=== PATIENT | male | born 1950 | race Caucasian/White ===

== ENCOUNTER 2017-10-17 11:48 | Emergency (ER) | payer OTHER ==
[~2017-10-17 11:48] MED LIST: ABILIF5PT PO; ACET650O4 PO; ARIP1SOL2 PO; ARIP20TA11 PO; BLOOD PRESSURE; BLOOD PRESSURE MED PO; BUPR-149 PO; CEPH-13 PO; CIT20 PO; DOC100 PO; HYDRO25 PO; LIT300 PO; LIT300CAP PO; LOR5/325 PO; LORA-633 PO; MULT-1379 PO; MVM PO; MYLL PO; NITR-105 PO; OLAN10TA19 PO; OLAN20TA17 PO; OMEG-11 PO; PHEN200T32 PO; SLEEP MED; SULF-198 PO; [UNRECOGNIZED DRUG - OTHER]
--- NOTE | 2017-10-17 11:57 | ER Report ---
History and Physical Time Seen By MD: 11:57 Hx. of Stated Complaint: pt presents with 1 week hx of elevated bp, was encouraged by [facility] rn to be evaluated HPI/ROS CHIEF COMPLAINT: Dizziness and hypertension HISTORY OF PRESENT ILLNESS: This is a 67-year-old male presents to the emergency department for dizziness and hypertension. Patient states that the last week his blood pressures increased, then today around 10:00 he developed some dizziness and a global headache. Patient denies any numbness or tingling nausea or vomiting. No chest pain or shortness of breath. No fevers or rashes. No visual changes. Positional changes do not seem to affect the patient's dizziness. States when he looks up that seems to increase the dizziness. His blood pressure at this time is 120/109. [facility] was concerned about his diastolic blood pressure subsequently sent him to the ER for further evaluation. REVIEW OF SYSTEMS: Constitutional: No fever, no chills. Eyes: No discharge. ENT: No sore throat. Cardiovascular: No chest pain, no palpitations. Respiratory: No cough, no shortness of breath. Gastrointestinal: No abdominal pain, no vomiting. Genitourinary: No hematuria. Musculoskeletal: No back pain. Skin: No rashes. Neurological: As above. Allergies: Coded Allergies: valproic acid (Verified Allergy, Mild, 10/17/17) Home Meds Reported Medications Metformin HCl (Metformin HCl ER) 500 Mg [id number] 10/17/17 Lisinopril (LISINOPRIL) 20 Mg Tablet, 20 MG PO QDAY, TAB 10/17/17 Propranolol Hcl (PROPRANOLOL HCL) 10 Mg Tablet, 10 MG PO BID 10/17/17 Bupropion Hcl (BUPROPION HCL) 100 Mg Tablet, 100 MG PO QAM 09/01/12 Aripiprazole (ABILIFY) 20 Mg Tablet, 10 MG PO QAM 09/01/12 Hydroxyzine Pamoate (Vistaril) 25 Mg Cap, 25 MG PO Q6H Y, 0 Refills 09/28/10 Olanzapine (Zyprexa) 10 Mg Tablet, 40 MG PO QHS, 0 Refills 09/28/10 Discontinued Scripts Phenazopyridine Hcl (PHENAZOPYRIDINE HCL) 200 Mg Tablet, 200 MG PO TID, #15 TAB TAKE 1 TABLET BY MOUTH THREE TIMES A DAY AFTER MEALS Prov:ABBY QUEVEDO NP 07/16/14 Nitrofurantoin Monohyd/M-Cryst (MACROBID 100 MG CAPSULE) 100 Mg Capsule, 100 MG PO BID, #14 CAPSULE Prov:ABBY QUEVEDO CLOTHER IN 07/16/14 Past Medical/Surgical History The patient has a past medical and surgical history of seizures, hypertension, hepatitis C, urinary tract infections, right arm fracture, bipolar disorder, schizophrenia, cholecystectomy, right knee surgery. Hx Smoking: Yes Smoking Status: Former Smoker Hx Substance Use Disorder: No Hx Alcohol Use: No Constitutional Vital Sign - Last 24 Hours 10/17/17 10/17/17 10/17/17 10/17/17 11:52 11:53 12:00 12:03 Temp 97.5 Pulse 68 61 Resp 20 12 B/P (MAP) 132/103 (113) 132/103 128/109 (115) Pulse Ox 95 96 O2 Delivery Room Air 10/17/17 10/17/17 10/17/17 10/17/17 12:18 12:30 12:50 13:00 Pulse 58 53 Resp 10 7 B/P (MAP) 126/87 (100) 122/95 (104) Pulse Ox 94 10/17/17 10/17/17 10/17/17 13:05 13:20 13:30 Pulse 58 62 Resp 10 20 B/P (MAP) 119/84 (96) Pulse Ox 92 92 Physical Exam CH General Appearance: The patient is alert, has no immediate need for airway protection and no signs of toxicity. Eyes: Pupils equal and round no pallor or injection. EOMs intact. No nystagmus in lateral or vertical gaze. ENT, Mouth: Mucous membranes are moist. Respiratory: There are no retractions, lungs are clear to auscultation. Cardiovascular: Regular rate and rhythm, no murmurs, clicks or rubs. Gastrointestinal: Abdomen is soft and non tender, no masses, bowel sounds normal. Neurological: Alert and oriented 4. Moving all extremities. Following all commands. No focal neuro deficits. Cranial nerves II through XII intact. Skin: Warm and dry, no rashes. Musculoskeletal: Neck is supple non tender. Extremities are nontender, nonswollen and have full range of motion. DIFFERENTIAL DIAGNOSIS: After history and physical exam differential diagnosis was considered for headache including but not limited to subarachnoid hemorrhage , migraine headache, tension headache and infectious causes such as meningitis, pharyngitis and sinusitis. NIH Stroke Scale: 0 Level of consciousness:0 Alert Answers both questions correctly Performs both tasks correctly Best Gaze:0 Normal Visual:0 No visual loss Facial Palsy:0 Normal, symmetrical movements Motor Left Arm:0 No drift for 10 seconds Motor Right Arm:0 No drift for 10 seconds Motor Left Le No drift for 5 seconds Motor Right Le No drift for 5 seconds Limb Ataxia:0 Absent Sensory: 0 Normal, no sensory loss Best Language: 0 Normal, no aphasia Dysarthria:0 Normal Extinction and Inattention:0 No abnormality Medical Decision Making Data Points Result Diagram: 10/17/17 1202 10/17/17 1202 Laboratory Hematology Test 10/17/17 12:02 Red Blood Count 5.25 M/uL (4.00-5.60) Mean Corpuscular Volume 88.9 fL (80.0-96.0) Mean Corpuscular Hemoglobin 31.1 pg (26.0-33.0) Mean Corpuscular Hemoglobin Concent 35.0 g/dL (32.0-36.0) Red Cell Distribution Width 13.4 % (11.5-14.5) Mean Platelet Volume 9.3 fL (7.2-11.1) Neutrophils (%) (Auto) 53.8 % (39.4-72.5) Lymphocytes (%) (Auto) 35.5 % (17.6-49.6) Monocytes (%) (Auto) 8.7 % (4.1-12.4) Eosinophils (%) (Auto) 1.1 % (0.4-6.7) Basophils (%) (Auto) 0.9 % (0.3-1.4) Nucleated RBC Relative Count (auto) 0.0 /100WBC Neutrophils # (Auto) 2.8 K/uL (2.0-7.4) Lymphocytes # (Auto) 1.8 K/uL (1.3-3.6) Monocytes # (Auto) 0.5 K/uL (0.3-1.0) Eosinophils # (Auto) 0.1 K/uL (0.0-0.5) Basophils # (Auto) 0.0 K/uL (0.0-0.1) Nucleated RBC Absolute Count (auto) 0.00 K/uL Sodium Level 141 mmol/L (137-145) Potassium Level 4.2 mmol/L (3.5-5.0) Chloride Level 104 mmol/L (98-107) Carbon Dioxide Level 25 mmol/L (22-30) Blood Urea Nitrogen 20 mg/dl (9-21) Creatinine 1.10 mg/dl (0.66-1.25) Glomerular Filtration Rate Calc > 60.0 Random Glucose 132 mg/dl (75-110) Calcium Level 9.6 mg/dl (8.4-10.2) Total Bilirubin 0.6 mg/dl (0.2-1.3) Aspartate Amino Transf (AST/SGOT) 18 U/L (0-35) Alanine Aminotransferase (ALT/SGPT) 22 U/L (0-56) Alkaline Phosphatase 64 U/L (0-126) Troponin I < 0.012 ng/ml Total Protein 4.6 g/dl (6.3-8.2) Albumin 4.5 g/dl (3.5-5.0) Chemistry Test 10/17/17 12:02 White Blood Count 5.2 k/uL (4.5-11.0) Red Blood Count 5.25 M/uL (4.00-5.60) Hemoglobin 16.4 g/dL (14.0-18.0) Hematocrit 46.7 % (42.0-52.0) Mean Corpuscular Volume 88.9 fL (80.0-96.0) Mean Corpuscular Hemoglobin 31.1 pg (26.0-33.0) Mean Corpuscular Hemoglobin Concent 35.0 g/dL (32.0-36.0) Red Cell Distribution Width 13.4 % (11.5-14.5) Platelet Count 124 K/uL (150-450) Mean Platelet Volume 9.3 fL (7.2-11.1) Neutrophils (%) (Auto) 53.8 % (39.4-72.5) Lymphocytes (%) (Auto) 35.5 % (17.6-49.6) Monocytes (%) (Auto) 8.7 % (4.1-12.4) Eosinophils (%) (Auto) 1.1 % (0.4-6.7) Basophils (%) (Auto) 0.9 % (0.3-1.4) Nucleated RBC Relative Count (auto) 0.0 /100WBC Neutrophils # (Auto) 2.8 K/uL (2.0-7.4) Lymphocytes # (Auto) 1.8 K/uL (1.3-3.6) Monocytes # (Auto) 0.5 K/uL (0.3-1.0) Eosinophils # (Auto) 0.1 K/uL (0.0-0.5) Basophils # (Auto) 0.0 K/uL (0.0-0.1) Nucleated RBC Absolute Count (auto) 0.00 K/uL Glomerular Filtration Rate Calc > 60.0 Calcium Level 9.6 mg/dl (8.4-10.2) Total Bilirubin 0.6 mg/dl (0.2-1.3) Aspartate Amino Transf (AST/SGOT) 18 U/L (0-35) Alanine Aminotransferase (ALT/SGPT) 22 U/L (0-56) Alkaline Phosphatase 64 U/L (0-126) Troponin I < 0.012 ng/ml Total Protein 4.6 g/dl (6.3-8.2) Albumin 4.5 g/dl (3.5-5.0) EKG/Imaging EKG Interpretation 12 lead EKG: EKG at 1158. Rhythm: normal sinus rhythm, ventricular rate 63 bpm. [place]: normal QRS: normal ST segments: No ST depression or elevation identified. Imaging COMPARISON: None FINDINGS: Cardiomediastinal contours: The heart size is normal. Lungs and pleura: Linear density in the posterior aspect of the left lung base is unchanged when compared to prior studies and has the appearance of scar. There is no new infiltrate or pleural effusion. There is no lymphadenopathy. Bones/soft tissues: There are no findings of a fracture. Abdomen: There are surgical clips in right upper quadrant. IMPRESSION: 1. Parenchymal scarring in the left lung base without change. 2. No active disease in the chest. Report Dictated By: Edward Lopez MD at 10/17/2017 1:32 PM Report E-Signed By: Edward Lopez MD at 10/17/2017 1:33 PM Location: [facility] - [place] Patient: Sebastien Bland : 1950 Visit/Account:[id number] Date of Sevice: 10/17/2017 EXAMINATION: CT head without IV contrast HISTORY: Hypertension, new onset dizziness, headache. COMPARISON: CT head from 09/01/2012. TECHNIQUE: Contiguous axial images were obtained from the skull base to the vertex without intravenous contrast. Sagittal and coronal reformatted images are also submitted. One of the following dose optimization techniques was utilized in the performance of this exam: Automated exposure control; adjustment of the mA and/ or kV according to the patient's size; or use of an iterative reconstruction technique. Specific details can be referenced in the facility's radiology CT exam operational policy. FINDINGS: Brain volume: Normal. Ventricles: Normal. Acute ischemic changes: None. Hemorrhage: No acute intracranial hemorrhage. Masses/edema: None. Stokes-white: Negative. White matter: Normal. Vessels: Negative. Extra-axial: Negative. Calvarium/scalp: Negative. Skull base/visualized face: Negative. Visualized sinuses/orbits: Negative. IMPRESSION: No acute hemorrhage or intracranial mass lesion. No CT evidence of acute infarct. Report Dictated By: Michelle Saxena MD at 10/17/2017 12:57 PM Report E-Signed By: Michelle Saxena MD at 10/17/2017 12:58 PM WSN:[email or web address] ED Course/Re-evaluation ED Course The patient was admitted to room. A history and physical were obtained. Differential diagnoses were considered. An IV was started. A CBC, CMP were obtained. Negative troponin. Lab studies unremarkable. EKG showing normal sinus rhythm. Chest x-ray was negative for any acute cardiopulmonary process. CT of the head negative for any acute intracranial abnormalities. The patient's blood pressure did come down without's medications, the last diastolic blood pressure was 87. I reviewed the lab studies and a head CT with the patient and his sister. My recommendation was [facility] within the [facility] week for an assessment of his blood pressure medications and consideration of adding or changing his meds. The patient's was in agreement with this plan of care and discharged home. The patient's "dizziness" had subsided. Neurologically patient was intact. Negative on the NIH stroke scale. 10/17/2017 1:23:49 pm did review the CT results with the patient as well as the laboratory studies. Also noted that the patient's blood pressure came down last diastolic 85 Decision to Disposition Date: Oct 17, 2017 Decision to Disposition Time: 13:21 Depart Departure Latest Vital Signs Vital Signs Date Time Temp Pulse Resp B/P (MAP) Pulse Ox O2 Delivery O2 Flow Rate FiO2 10/17/17 13:30 119/84 (96) 10/17/17 13:20 62 20 92 10/17/17 11:53 97.5 Room Air Impression: Primary Impression: Hypertension Condition: Improved Disposition: HOME OR SELF-CARE Patient Instructions: Hypertension (ED) Additional Instructions: Call later today to try to schedule [facility] for [facility] concerning changes tear hypertensive medications. Be sure to stay well-hydrated. Get plenty of rest. Continue taking your current medications as scheduled. Return to the emergency department for any concerns or worsening symptoms. There were no acute intracranial changes on your brain CAT scan. Problem Qualifiers Primary Impression: Hypertension Hypertension type: unspecified Qualified Codes: I10 - Essential (primary) hypertension JORGE ALBERTO JACKSON SITE DAMAGE PREVENTION TECHNICIAN-BC Oct 17, 2017 11:57
[2017-10-17] MEDS ORDERED: PROP10TA58 PO (11:59)
[2017-10-17] MEDS ORDERED: LISI20TA29 PO (12:02)
[2017-10-17 12:29] LABS: PLATELET COUNT, AUTOMATED 124 K/uL (150-450)
[2017-10-17] MEDS ORDERED: METF-51 (12:40)
--- NOTE | 2017-10-17 12:52 | EKG ---
FACILITY: [facility] PATIENT NAME: CAM ENRIQUEZ : [id number] MR: [id number] V: [id number] EXAM DATE: ORDERING PHYSICIAN: JORGE ALBERTO JACKSON TECHNOLOGIST: JOYCE Thompson Reason : Blood Pressure : / mmHG Vent. Rate : 063 BPM Atrial Rate : 063 BPM P-R Int : 134 ms QRS Dur : 108 ms QT Int : 422 ms P-R-T Axes : 065 014 044 degrees QTc Int : 431 ms Normal sinus rhythm Normal ECG When compared with ECG of 01-SEP-2012 16:53, QT has shortened Confirmed by WILMAN MARCH ([id number]) on 10/17/2017 2:49:10 PM Referred By: Confirmed By:WILMAN MARCH
--- NOTE | 2017-10-17 13:01 | RADIOLOGY IMAGING REPORT ---
FACILITY: [facility] PATIENT NAME: Sebastien Bland : 1950 MR: [id number] V: [id number] EXAM DATE: ORDERING PHYSICIAN: JORGE ALBERTO JACKSON TECHNOLOGIST: Location: [facility] Patient: Sebastien Bland : 1950 Visit/Account:[id number] Date of Sevice: 10/17/2017 EXAMINATION: CT head without IV contrast HISTORY: Hypertension, new onset dizziness, headache. COMPARISON: CT head from 09/01/2012. TECHNIQUE: Contiguous axial images were obtained from the skull base to the vertex without intraven ous contrast. Sagittal and coronal reformatted images are also submitted. One of the following dose optimization techniques was utilized in the performance of this exam: Autom ated exposure control; adjustment of the mA and/or kV according to the patient's size; or use of an i terative reconstruction technique. Specific details can be referenced in the facility's radiology C T exam operational policy. FINDINGS: Brain volume: Normal. Ventricles: Normal. Acute ischemic changes: None. Hemorrhage: No acute intracranial hemorrhage. Masses/edema: None. Stokes-white: Negative. White matter: Normal. Vessels: Negative. Extra-axial: Negative. Calvarium/scalp: Negative. Skull base/visualized face: Negative. Visualized sinuses/orbits: Negative. IMPRESSION: No acute hemorrhage or intracranial mass lesion. No CT evidence of acute infarct. Report Dictated By: Michelle Saxena MD at 10/17/2017 12:57 PM Report E-Signed By: Michelle Saxena MD at 10/17/2017 12:58 PM WSN:[email or web address]
[2017-10-17 13:30] VITALS: BP 119/84
--- NOTE | 2017-10-17 13:38 | RADIOLOGY IMAGING REPORT ---
FACILITY: [facility] PATIENT NAME: Sebastien Bland : 1950 MR: [id number] V: [id number] EXAM DATE: ORDERING PHYSICIAN: JORGE ALBRETO JACKSON TECHNOLOGIST: [place] [facility] [place] Sebastien Bland : 1950 Visit/Account:[id number] Date of Sevice: 10/17/2017 CHEST PA AND LAT HISTORY: Dizziness. COMPARISON: None FINDINGS: Cardiomediastinal contours: The heart size is normal. Lungs and pleura: Linear density in the posterior aspect of the left lung base is unchanged when comp ared to prior studies and has the appearance of scar. There is no new infiltrate or pleural effusion . There is no lymphadenopathy. Bones/soft tissues: There are no findings of a fracture. Abdomen: There are surgical clips in right upper quadrant. IMPRESSION: 1. Parenchymal scarring in the left lung base without change. 2. No active disease in the chest. Report Dictated By: Edward Lopez MD at 10/17/2017 1:32 PM Report E-Signed By: Edward Lopez MD at 10/17/2017 1:33 PM WSN:[email or web address]
== END 2017-10-17 13:33 | disposition home or self-care (01) ==
LOC: ER 11:52
DX: I10 Essential (primary) hypertension (principal)
CPT/HCPCS: 70450; 71046; 82040; 82247; 82310; 82374; 82435; 82565; 82947; 84075; 84132; 84155; 84295; 84450; 84460; 84484; 84520; 85025; 93005; 99284

== ENCOUNTER 2017-10-24 14:12 | Emergency (ER) | payer OTHER ==
[~2017-10-24 14:12] MED LIST changes: +LISI20TA29 PO; +METF-51; +PROP10TA58 PO
[2017-10-24] MEDS ORDERED: RANI75TA5 PO (14:42)
--- NOTE | 2017-10-24 15:17 | EKG ---
FACILITY: [facility] PATIENT NAME: CAM ENRIQUEZ : [id number] MR: [id number] V: [id number] EXAM DATE: ORDERING PHYSICIAN: SULTANA INTERIANO TECHNOLOGIST: Test Reason : HYPERTENSION Blood Pressure : / mmHG Vent. Rate : 059 BPM Atrial Rate : 059 BPM P-R Int : 126 ms QRS Dur : 106 ms QT Int : 424 ms P-R-T Axes : 056 023 039 degrees QTc Int : 419 ms Sinus bradycardia Otherwise normal ECG Confirmed by LOY RODRIGUEZ ([id number]) on 10/24/2017 3:45:33 PM Referred By: LAISHA Confirmed By:LOY RODRIGUEZ
--- NOTE | 2017-10-24 15:22 | ER Report ---
History and Physical Time Seen By MD: 14:45 Hx. of Stated Complaint: PT REPORTS BEING SEEN IN ED A FEW DAYS AGO WITH HIGH BLOOD PRESSURE, INSTRUCTED TO FOLLOW [facility] BUT THEY WILL NOT SEE HIM. PT REPORTS DIZZINESS AND FEELING LIKE HE'S GOING TO PASSOUT. DENIES CP/SOB. HPI/ROS CHIEF COMPLAINT: High blood pressure HISTORY OF PRESENT ILLNESS: 67-year-old male patient presents to emergency room with complaint of elevated blood pressure. Patient states he's been having problems for the past several days. Patient states he'shad a little bit of a headache. He states that that seems to be slightly worse than when he was in the emergency room last time. Patient states he's tried to get in contact with his primary care provider, who he sees at the [facility] through their telehealth. Patient states that he is tried getting contact with them, however he was not able to speak to the doctor. Patient states that he was directed to come to the emergency room. He denies any nausea, vomiting or diarrhea. He denies having any chest pain. Patient states that that he is concerned that his blood pressure is as high as it is. REVIEW OF SYSTEMS: Respiratory: No cough, no dyspnea. Cardiovascular: No chest pain, no palpitations. Gastrointestinal: No vomiting, no abdominal pain. Musculoskeletal: No back pain. Allergies: Coded Allergies: valproic acid (Verified Allergy, Mild, 10/24/17) Home Meds Active Scripts Nitrofurantoin Monohyd/M-Cryst (MACROBID 100 MG CAPSULE) 100 Mg Capsule, 100 MG PO BID, #14 CAPSULE Prov:[employer]NA [employer] 10/24/17 Reported Medications Ranitidine Hcl (RANITIDINE HCL) 75 Mg Tablet, 75 MG PO DAILY 10/24/17 Metformin HCl (Metformin HCl ER) 500 Mg [id number] 10/17/17 Lisinopril (LISINOPRIL) 20 Mg Tablet, 20 MG PO QDAY, TAB 10/17/17 Propranolol Hcl (PROPRANOLOL HCL) 10 Mg Tablet, 10 MG PO BID 10/17/17 Bupropion Hcl (BUPROPION HCL) 100 Mg Tablet, 100 MG PO QAM 09/01/12 Aripiprazole (ABILIFY) 20 Mg Tablet, 10 MG PO QAM 09/01/12 Hydroxyzine Pamoate (Vistaril) 25 Mg Cap, 25 MG PO Q6H Y, 0 Refills 09/28/10 Olanzapine (Zyprexa) 10 Mg Tablet, 40 MG PO QHS, 0 Refills 09/28/10 Discontinued Scripts Phenazopyridine Hcl (PHENAZOPYRIDINE HCL) 200 Mg Tablet, 200 MG PO TID, #15 TAB TAKE 1 TABLET BY MOUTH THREE TIMES A DAY AFTER MEALS Prov:ABBY QUEVEDO STATIC BALANCER 07/16/14 Nitrofurantoin Monohyd/M-Cryst (MACROBID 100 MG CAPSULE) 100 Mg Capsule, 100 MG PO BID, #14 CAPSULE Prov:ABBY QUEVEDO STATIC BALANCER 07/16/14 Past Medical/Surgical History Patient has a past medical history of seizures, hypertension, hepatitis, frequent UTI, right arm fracture, bipolar, schizophrenia. Patient has surgical history of right elbow surgery, right knee surgery, cholecystectomy. Patient has a family medical history of cancer, CAD, psychiatric problems Reviewed Nurses Notes: Yes Hx Smoking: Yes Smoking Status: Former Smoker Hx Substance Use Disorder: No Hx Alcohol Use: No Constitutional Vital Sign - Last 24 Hours 10/24/17 10/24/17 10/24/17 10/24/17 14:34 14:36 14:42 14:57 Temp 98.2 Pulse 64 64 65 Resp 12 12 18 B/P (MAP) 143/100 (114) 143/100 Pulse Ox 92 91 O2 Delivery Room Air 10/24/17 10/24/17 10/24/17 10/24/17 15:00 15:12 15:27 15:30 Pulse 60 66 Resp 22 B/P (MAP) 164/109 (127) 133/86 (102) 10/24/17 10/24/17 10/24/17 10/24/17 15:42 15:57 16:00 16:27 Temp 97.8 Pulse 72 62 Resp 15 17 B/P (MAP) 142/87 (105) Pulse Ox 94 92 Physical Exam General Appearance: The patient is alert, has no immediate need for airway protection and no current signs of toxicity. Respiratory: Chest is non tender, lungs are clear to auscultation. Cardiac: regular rate and rhythm Gastrointestinal: Abdomen is soft and non tender, no masses, bowel sounds normal. Musculoskeletal: Neck: Neck is supple and non tender. Extremities have full range of motion and are non tender. Skin: No rashes or lesions. DIFFERENTIAL DIAGNOSIS: After history and physical exam differential diagnosis was considered for hypertension, [place], hypertensive urgency, hypertensive emergency. Medical Decision Making Data Points Result Diagram: 10/24/17 1524 10/24/17 1524 Laboratory Hematology Test 10/24/17 15:24 Red Blood Count 4.86 M/uL (4.00-5.60) Mean Corpuscular Volume 88.7 fL (80.0-96.0) Mean Corpuscular Hemoglobin 31.0 pg (26.0-33.0) Mean Corpuscular Hemoglobin Concent 34.9 g/dL (32.0-36.0) Red Cell Distribution Width 13.5 % (11.5-14.5) Mean Platelet Volume 8.9 fL (7.2-11.1) Neutrophils (%) (Auto) 63.4 % (39.4-72.5) Lymphocytes (%) (Auto) 26.6 % (17.6-49.6) Monocytes (%) (Auto) 7.8 % (4.1-12.4) Eosinophils (%) (Auto) 1.1 % (0.4-6.7) Basophils (%) (Auto) 1.1 % (0.3-1.4) Nucleated RBC Relative Count (auto) 0.2 /100WBC Neutrophils # (Auto) 2.8 K/uL (2.0-7.4) Lymphocytes # (Auto) 1.2 K/uL (1.3-3.6) Monocytes # (Auto) 0.3 K/uL (0.3-1.0) Eosinophils # (Auto) 0.0 K/uL (0.0-0.5) Basophils # (Auto) 0.0 K/uL (0.0-0.1) Nucleated RBC Absolute Count (auto) 0.01 K/uL Urine Color Straw Urine Clarity Clear Urine pH 6.0 pH (4.8-9.5) Urine Specific [place] 1.003 Urine Protein Negative mg/dL (NEGATIVE) Urine Glucose (UA) Negative mg/dL (NEGATIVE) Urine Ketones Negative mg/dL (NEGATIVE) Urine Blood Negative (NEGATIVE) Urine Nitrite Negative (NEGATIVE) Urine Bilirubin Negative (NEGATIVE) Urine Urobilinogen Negative mg/dL (0.2-1.9) Urine Leukocyte Esterase Small (NEGATIVE) Urine RBC 1 /HPF (0-2/HPF) Urine WBC 10 /HPF (0-5/HPF) Urine Squamous Epithelial Cells None /LPF (</=FEW) Urine Bacteria Few /HPF (NONE-FEW) Urine Mucus None /HPF (NONE-FEW) Sodium Level 142 mmol/L (137-145) Potassium Level 4.2 mmol/L (3.5-5.0) Chloride Level 105 mmol/L (98-107) Carbon Dioxide Level 23 mmol/L (22-30) Blood Urea Nitrogen 17 mg/dl (9-21) Creatinine 0.90 mg/dl (0.66-1.25) Glomerular Filtration Rate Calc > 60.0 Random Glucose 165 mg/dl (75-110) Calcium Level 9.2 mg/dl (8.4-10.2) Total Bilirubin 0.7 mg/dl (0.2-1.3) Aspartate Amino Transf (AST/SGOT) 18 U/L (0-35) Alanine Aminotransferase (ALT/SGPT) 18 U/L (0-56) Alkaline Phosphatase 59 U/L (0-126) Troponin I < 0.012 ng/ml Total Protein 6.8 g/dl (6.3-8.2) Albumin 4.1 g/dl (3.5-5.0) Chemistry Test 10/24/17 15:24 White Blood Count 4.5 k/uL (4.5-11.0) Red Blood Count 4.86 M/uL (4.00-5.60) Hemoglobin 15.1 g/dL (14.0-18.0) Hematocrit 43.1 % (42.0-52.0) Mean Corpuscular Volume 88.7 fL (80.0-96.0) Mean Corpuscular Hemoglobin 31.0 pg (26.0-33.0) Mean Corpuscular Hemoglobin Concent 34.9 g/dL (32.0-36.0) Red Cell Distribution Width 13.5 % (11.5-14.5) Platelet Count 127 K/uL (150-450) Mean Platelet Volume 8.9 fL (7.2-11.1) Neutrophils (%) (Auto) 63.4 % (39.4-72.5) Lymphocytes (%) (Auto) 26.6 % (17.6-49.6) Monocytes (%) (Auto) 7.8 % (4.1-12.4) Eosinophils (%) (Auto) 1.1 % (0.4-6.7) Basophils (%) (Auto) 1.1 % (0.3-1.4) Nucleated RBC Relative Count (auto) 0.2 /100WBC Neutrophils # (Auto) 2.8 K/uL (2.0-7.4) Lymphocytes # (Auto) 1.2 K/uL (1.3-3.6) Monocytes # (Auto) 0.3 K/uL (0.3-1.0) Eosinophils # (Auto) 0.0 K/uL (0.0-0.5) Basophils # (Auto) 0.0 K/uL (0.0-0.1) Nucleated RBC Absolute Count (auto) 0.01 K/uL Urine Color Straw Urine Clarity Clear Urine pH 6.0 pH (4.8-9.5) Urine Specific [place] 1.003 Urine Protein Negative mg/dL (NEGATIVE) Urine Glucose (UA) Negative mg/dL (NEGATIVE) Urine Ketones Negative mg/dL (NEGATIVE) Urine Blood Negative (NEGATIVE) Urine Nitrite Negative (NEGATIVE) Urine Bilirubin Negative (NEGATIVE) Urine Urobilinogen Negative mg/dL (0.2-1.9) Urine Leukocyte Esterase Small (NEGATIVE) Urine RBC 1 /HPF (0-2/HPF) Urine WBC 10 /HPF (0-5/HPF) Urine Squamous Epithelial Cells None /LPF (</=FEW) Urine Bacteria Few /HPF (NONE-FEW) Urine Mucus None /HPF (NONE-FEW) Glomerular Filtration Rate Calc > 60.0 Calcium Level 9.2 mg/dl (8.4-10.2) Total Bilirubin 0.7 mg/dl (0.2-1.3) Aspartate Amino Transf (AST/SGOT) 18 U/L (0-35) Alanine Aminotransferase (ALT/SGPT) 18 U/L (0-56) Alkaline Phosphatase 59 U/L (0-126) Troponin I < 0.012 ng/ml Total Protein 6.8 g/dl (6.3-8.2) Albumin 4.1 g/dl (3.5-5.0) Urinalysis Test 10/24/17 15:24 Urine Color Straw Urine Clarity Clear Urine pH 6.0 pH (4.8-9.5) Urine Specific [place] 1.003 Urine Protein Negative mg/dL (NEGATIVE) Urine Glucose (UA) Negative mg/dL (NEGATIVE) Urine Ketones Negative mg/dL (NEGATIVE) Urine Blood Negative (NEGATIVE) Urine Nitrite Negative (NEGATIVE) Urine Bilirubin Negative (NEGATIVE) Urine Urobilinogen Negative mg/dL (0.2-1.9) Urine Leukocyte Esterase Small (NEGATIVE) Urine RBC 1 /HPF (0-2/HPF) Urine WBC 10 /HPF (0-5/HPF) Urine Squamous Epithelial Cells None /LPF (</=FEW) Urine Bacteria Few /HPF (NONE-FEW) Urine Mucus None /HPF (NONE-FEW) ED Course/Re-evaluation ED Course Patient was admitted to an exam room, history and physical were obtained. Differential diagnoses were considered. On examination lungs are clear, heart was regular, abdomen was soft and nontender. A CBC, CMP, urinalysis, troponin, EKG were performed. Patient had a sinus bradycardia, his EKG was otherwise unremarkable. Labs were also unremarkable. I refrained from doing a CT scan of the head due to his recent CT scan. Patient came in and had blood pressure 143/ 100. That giving him any medication his blood pressure did go down to 120s over 80s, and then increased again to 140s over 80s. I do believe that this problem with his blood pressure could be related to some anxiety. He seems to improve whenever he call the sound. It the same experience last time is in the emergency room on October 17. To help him I will go ahead and have him take an additional lisinopril for blood pressure that is greater than 155/95. He is to follow-up with his primary care provider. He states he has appointment at the beginning of November. I would like him to be seen much sooner. Patient also had a urinary tract infection with 10 white blood cells per high-power field on his urine as well as a leukocyte esterase. A culture was obtained and we will go ahead and treat him with Macrobid. We will change antibiotics as needed based on the culture results. Patient verbalized understanding and agreement with plan. Decision to Disposition Date: Oct 24, 2017 Decision to Disposition Time: 16:14 Depart Departure Latest Vital Signs Vital Signs Date Time Temp Pulse Resp B/P (MAP) Pulse Ox O2 Delivery O2 Flow Rate FiO2 8/9/18 16:27 97.8 10/24/17 16:00 142/87 (105) 10/24/17 15:57 62 17 92 10/24/17 14:36 Room Air Impression: Primary Impression: Hypertension Additional Impression: Urinary tract infection Condition: Improved Disposition: HOME OR SELF-CARE New Scripts Nitrofurantoin Monohyd/M-Cryst (MACROBID 100 MG CAPSULE) 100 Mg Capsule 100 MG PO BID, #14 CAPSULE Prov: SULTANA INTERIANO 10/24/17 Patient Instructions: Hypertension (ED) Additional Instructions: Increase lisinopril to 40mg a day, on days when your blood pressure is greater than 155/95. Get plenty of rest. Low salt diet. Follow up with your primary care provider in the next week. Return to the ER if condition worsens. Continue with the propranolol as you are currently taking it. Problem Qualifiers Primary Impression: Hypertension Hypertension type: essential hypertension Qualified Codes: I10 - Essential ( primary) hypertension Additional Impression: Urinary tract infection Urinary tract infection type: acute cystitis Hematuria presence: without hematuria Qualified Codes: N30.00 - Acute cystitis without hematuria SULTANA INTERIANO Oct 24, 2017 15:22
[2017-10-24 15:33] LABS: PLATELET COUNT, AUTOMATED 127 K/uL (150-450)
[2017-10-24 16:00] VITALS: BP 142/87
[2017-10-24] MEDS ORDERED: NITR-105 PO (16:13)
== END 2017-10-24 16:29 | disposition home or self-care (01) ==
LOC: ER 14:35
DX: I10 Essential (primary) hypertension (principal); N30.00 Acute cystitis without hematuria
CPT/HCPCS: 81001; 82040; 82247; 82310; 82374; 82435; 82565; 82947; 84075; 84132; 84155; 84295; 84450; 84460; 84484; 84520; 85025; 87088; 93005; 99283

== ENCOUNTER 2017-11-07 11:49 | Emergency (ER) | payer OTHER ==
[~2017-11-07 11:49] MED LIST changes: +RANI75TA5 PO
--- NOTE | 2017-11-07 11:51 | ER Report ---
History and Physical Time Seen By MD: 12:00 HPI/ROS CHIEF COMPLAINT: Concerns about elevated blood pressure. HISTORY OF PRESENT ILLNESS: Patient is a pleasant 67-year-old male who presents to the emergency department for concerns of elevated blood pressure. He states at home his blood pressure was 150/99. He denies any symptomatology. He denies headache or dizziness he denies chest pain or shortness of breath denies nausea vomiting or diarrhea. Patient has had 2 visits prior October 17 and again October 24 for elevated blood pressure. On the visit in the 90 was instructed to increase his lisinopril which she has done. He further was instructed to follow-up with his primary care provider at the [facility]. He has not actually seen them yet but does have an appointment on November 21. Patient is concerned that his blood pressure keeps going up and down and is here just to have it checked. REVIEW OF SYSTEMS: Respiratory: No cough, no dyspnea. Cardiovascular: No chest pain, no palpitations. Gastrointestinal: No vomiting, no abdominal pain. Musculoskeletal: No back pain. Allergies: Coded Allergies: valproic acid (Verified Allergy, Mild, 11/07/17) Home Meds Active Scripts Nitrofurantoin Monohyd/M-Cryst (MACROBID 100 MG CAPSULE) 100 Mg Capsule, 100 MG PO BID, #14 CAPSULE Prov:SULTANA INTERIANO PAIL TESTER 10/24/17 Reported Medications Lamotrigine (LAMOTRIGINE) 150 Mg Tablet, PO 11/07/17 Lisinopril (LISINOPRIL) 40 Mg Tablet, 40 MG PO QDAY, TAB 11/07/17 Ranitidine Hcl (RANITIDINE HCL) 75 Mg Tablet, 75 MG PO DAILY 10/24/17 Metformin HCl (Metformin HCl ER) 500 Mg [id number] 10/17/17 Propranolol Hcl (PROPRANOLOL HCL) 10 Mg Tablet, 10 MG PO BID 10/17/17 Bupropion Hcl (BUPROPION HCL) 100 Mg Tablet, 100 MG PO QAM 09/01/12 Aripiprazole (ABILIFY) 20 Mg Tablet, 10 MG PO QAM 09/01/12 Hydroxyzine Pamoate (Vistaril) 25 Mg Cap, 25 MG PO Q6H PRN, 0 Refills 09/28/10 Olanzapine (Zyprexa) 10 Mg Tablet, 40 MG PO QHS, 0 Refills 09/28/10 Discontinued Reported Medications Lisinopril (LISINOPRIL) 20 Mg Tablet, 20 MG PO QDAY, TAB 10/17/17 Past Medical/Surgical History History of hypertension Hx Smoking: Yes Smoking Status: Former Smoker Hx Substance Use Disorder: No Hx Alcohol Use: No Constitutional Vital Sign - Last 24 Hours 11/07/17 11:53 Temp 98.6 Pulse 61 Resp 18 B/P (MAP) 148/87 Pulse Ox 95 O2 Delivery Room Air Physical Exam General Appearance: The patient is alert, has no immediate need for airway pro tection and no current signs of toxicity. Eyes: Pupils equal and round no injection. Respiratory: Chest is non tender, lungs are clear to auscultation. Cardiac: regular rate and rhythm Gastrointestinal: Abdomen is soft and non tender, no masses, bowel sounds normal. Musculoskeletal: Neck: Neck is supple and non tender. Extremities have full range of motion and are non tender. Skin: No rashes or lesions. Medical Decision Making Data Points Result Diagram: 11/07/17 1220 11/07/17 1220 Laboratory Hematology Test 11/07/17 12:20 11/07/17 12:26 Red Blood Count 5.12 M/uL (4.00-5.60) Mean Corpuscular Volume 88.6 fL (80.0-96.0) Mean Corpuscular Hemoglobin 30.9 pg (26.0-33.0) Mean Corpuscular Hemoglobin Concent 34.9 g/dL (32.0-36.0) Red Cell Distribution Width 13.4 % (11.5-14.5) Mean Platelet Volume 8.4 fL (7.2-11.1) Neutrophils (%) (Auto) 60.5 % (39.4-72.5) Lymphocytes (%) (Auto) 28.3 % (17.6-49.6) Monocytes (%) (Auto) 9.4 % (4.1-12.4) Eosinophils (%) (Auto) 0.6 % (0.4-6.7) Basophils (%) (Auto) 1.2 % (0.3-1.4) Nucleated RBC Relative Count (auto) 0.1 /100WBC Neutrophils # (Auto) 2.8 K/uL (2.0-7.4) Lymphocytes # (Auto) 1.3 K/uL (1.3-3.6) Monocytes # (Auto) 0.4 K/uL (0.3-1.0) Eosinophils # (Auto) 0.0 K/uL (0.0-0.5) Basophils # (Auto) 0.1 K/uL (0.0-0.1) Nucleated RBC Absolute Count (auto) 0.01 K/uL Peripheral Blood Smear No Y/N Sodium Level 139 mmol/L (137-145) Potassium Level 4.4 mmol/L (3.5-5.0) Chloride Level 106 mmol/L (98-107) Carbon Dioxide Level 24 mmol/L (22-30) Blood Urea Nitrogen 15 mg/dl (9-21) Creatinine 1.10 mg/dl (0.66-1.25) Glomerular Filtration Rate Calc > 60.0 Random Glucose 129 mg/dl (75-110) Calcium Level 9.3 mg/dl (8.4-10.2) Total Bilirubin 0.8 mg/dl (0.2-1.3) Aspartate Amino Transf (AST/SGOT) 16 U/L (0-35) Alanine Aminotransferase (ALT/SGPT) 21 U/L (0-56) Alkaline Phosphatase 70 U/L (0-126) Total Protein 7.2 g/dl (6.3-8.2) Albumin 4.2 g/dl (3.5-5.0) Urine Color Yellow Urine Clarity Clear Urine pH 6.0 pH (4.8-9.5) Urine Specific [place] 1.012 Urine Protein Negative mg/dL (NEGATIVE) Urine Glucose (UA) Negative mg/dL (NEGATIVE) Urine Ketones Negative mg/dL (NEGATIVE) Urine Blood Negative (NEGATIVE) Urine Nitrite Negative (NEGATIVE) Urine Bilirubin Negative (NEGATIVE) Urine Urobilinogen Negative mg/dL (0.2-1.9) Urine Leukocyte Esterase Negative (NEGATIVE) Urine RBC None /HPF (0-2/HPF) Urine WBC 1 /HPF (0-5/HPF) Urine Squamous Epithelial Cells None /LPF (</=FEW) Urine Bacteria Negative /HPF (NONE-FEW) Urine Mucus None /HPF (NONE-FEW) Chemistry Test 11/07/17 12:20 11/07/17 12:26 White Blood Count 4.6 k/uL (4.5-11.0) Red Blood Count 5.12 M/uL (4.00-5.60) Hemoglobin 15.8 g/dL (14.0-18.0) Hematocrit 45.4 % (42.0-52.0) Mean Corpuscular Volume 88.6 fL (80.0-96.0) Mean Corpuscular Hemoglobin 30.9 pg (26.0-33.0) Mean Corpuscular Hemoglobin Concent 34.9 g/dL (32.0-36.0) Red Cell Distribution Width 13.4 % (11.5-14.5) Platelet Count 136 K/uL (150-450) Mean Platelet Volume 8.4 fL (7.2-11.1) Neutrophils (%) (Auto) 60.5 % (39.4-72.5) Lymphocytes (%) (Auto) 28.3 % (17.6-49.6) Monocytes (%) (Auto) 9.4 % (4.1-12.4) Eosinophils (%) (Auto) 0.6 % (0.4-6.7) Basophils (%) (Auto) 1.2 % (0.3-1.4) Nucleated RBC Relative Count (auto) 0.1 /100WBC Neutrophils # (Auto) 2.8 K/uL (2.0-7.4) Lymphocytes # (Auto) 1.3 K/uL (1.3-3.6) Monocytes # (Auto) 0.4 K/uL (0.3-1.0) Eosinophils # (Auto) 0.0 K/uL (0.0-0.5) Basophils # (Auto) 0.1 K/uL (0.0-0.1) Nucleated RBC Absolute Count (auto) 0.01 K/uL Peripheral Blood Smear No Y/N Glomerular Filtration Rate Calc > 60.0 Calcium Level 9.3 mg/dl (8.4-10.2) Total Bilirubin 0.8 mg/dl (0.2-1.3) Aspartate Amino Transf (AST/SGOT) 16 U/L (0-35) Alanine Aminotransferase (ALT/SGPT) 21 U/L (0-56) Alkaline Phosphatase 70 U/L (0-126) Total Protein 7.2 g/dl (6.3-8.2) Albumin 4.2 g/dl (3.5-5.0) Urine Color Yellow Urine Clarity Clear Urine pH 6.0 pH (4.8-9.5) Urine Specific [place] 1.012 Urine Protein Negative mg/dL (NEGATIVE) Urine Glucose (UA) Negative mg/dL (NEGATIVE) Urine Ketones Negative mg/dL (NEGATIVE) Urine Blood Negative (NEGATIVE) Urine Nitrite Negative (NEGATIVE) Urine Bilirubin Negative (NEGATIVE) Urine Urobilinogen Negative mg/dL (0.2-1.9) Urine Leukocyte Esterase Negative (NEGATIVE) Urine RBC None /HPF (0-2/HPF) Urine WBC 1 /HPF (0-5/HPF) Urine Squamous Epithelial Cells None /LPF (</=FEW) Urine Bacteria Negative /HPF (NONE-FEW) Urine Mucus None /HPF (NONE-FEW) Urinalysis Test 11/07/17 12:26 Urine Color Yellow Urine Clarity Clear Urine pH 6.0 pH (4.8-9.5) Urine Specific [place] 1.012 Urine Protein Negative mg/dL (NEGATIVE) Urine Glucose (UA) Negative mg/dL (NEGATIVE) Urine Ketones Negative mg/dL (NEGATIVE) Urine Blood Negative (NEGATIVE) Urine Nitrite Negative (NEGATIVE) Urine Bilirubin Negative (NEGATIVE) Urine Urobilinogen Negative mg/dL (0.2-1.9) Urine Leukocyte Esterase Negative (NEGATIVE) Urine RBC None /HPF (0-2/HPF) Urine WBC 1 /HPF (0-5/HPF) Urine Squamous Epithelial Cells None /LPF (</=FEW) Urine Bacteria Negative /HPF (NONE-FEW) Urine Mucus None /HPF (NONE-FEW) EKG/Imaging EKG Interpretation EKG shows normal sinus rhythm with no significant ectopy. Monitor Interpretation: Normal Sinus Rhythm ED Course/Re-evaluation ED Course Plan at this time will be cardiac workup along with EKG. Likely patient to be discharged home with encouragement to follow up with his primary care provider. Decision to Disposition Date: Nov 07, 2017 Decision to Disposition Time: 12:41 Depart Departure Latest Vital Signs Vital Signs Date Time Temp Pulse Resp B/P (MAP) Pulse Ox O2 Delivery O2 Flow Rate FiO2 11/07/17 11:53 98.6 61 18 148/87 95 Room Air Impression: Primary Impression: Hypertension Condition: Condition Unchanged Disposition: HOME OR SELF-CARE Patient Instructions: Hypertension (ED) Additional Instructions: Continue all your current medications as directed. Follow-up as scheduled on November 21 with your physician. Problem Qualifiers Primary Impression: Hypertension Hypertension type: essential hypertension Qualified Codes: I10 - Essential (primary) hypertension CRESENCIO JOHNSON MD Nov 07, 2017 11:51
[2017-11-07] MEDS ORDERED: LISI-374 PO (11:56)
[2017-11-07] MEDS ORDERED: LAMO150T36 PO (11:57)
--- NOTE | 2017-11-07 12:19 | EKG ---
FACILITY: [facility] PATIENT NAME: CAM ENRIQUEZ : [id number] MR: [id number] V: [id number] EXAM DATE: ORDERING PHYSICIAN: CRESENCIO JOHNSON TECHNOLOGIST: STACIA Test Reason : ER Blood Pressure : / mmHG Vent. Rate : 061 BPM Atrial Rate : 061 BPM P-R Int : 122 ms QRS Dur : 102 ms QT Int : 414 ms P-R-T Axes : 063 013 036 degrees QTc Int : 416 ms Normal sinus rhythm Low voltage QRS Borderline ECG When compared with ECG of 24-OCT-2017 15:11, No significant change was found Confirmed by Trent Quarles ([id number] on 11/07/2017 1:52:35 PM Referred By: ANIKA Confirmed By:Trent Gonzalez
[2017-11-07 12:26] LABS: PLATELET COUNT, AUTOMATED 136 K/uL (150-450)
[2017-11-07 12:45] VITALS: BP 132/88
== END 2017-11-07 12:50 | disposition home or self-care (01) ==
LOC: ER 11:51
DX: I10 Essential (primary) hypertension (principal)
CPT/HCPCS: 81001; 82040; 82247; 82310; 82374; 82435; 82565; 82947; 84075; 84132; 84155; 84295; 84450; 84460; 84484; 84520; 85025; 93005; 99283

== ENCOUNTER 2017-12-15 13:19 | Emergency (ER) | payer OTHER ==
[~2017-12-15 13:19] MED LIST changes: +LAMO150T36 PO; +LISI-374 PO
--- NOTE | 2017-12-15 13:35 | ER Report ---
History and Physical Time Seen By MD: 13:35 HPI/ROS CHIEF COMPLAINT: Lightheadedness HISTORY OF PRESENT ILLNESS: 67-year-old male patient presents to emergency room with complaint of lightheadedness. Patient states that he became lightheaded ap proximately hour ago. He states that at that time he checked his blood pressure. He states that his blood pressure was running high, 130s over 106. Patient states he became concerned because of blood pressures that high. Patient states that he did have some chest pain earlier today. He denies any shortness of breath, nausea, vomiting or diarrhea. Patient states he is not taking any medication for this. Patient states he is a diabetic and takes metformin for his diabetes but did not check his blood sugar. REVIEW OF SYSTEMS: Respiratory: No cough, no dyspnea. Cardiovascular: As noted above Gastrointestinal: No vomiting, no abdominal pain. Musculoskeletal: No back pain. Allergies: Coded Allergies: valproic acid (Verified Allergy, Mild, 11/07/17) Home Meds Active Scripts Sulfamethoxazole/Trimet 800-160 Mg Tab (BACTRIM DS TABLET) 1 Each Tablet, 1 TAB PO Q12H, #14 TAB Prov:SULTANA INTERIANO SUPERVISOR DOPING 12/15/17 Reported Medications Lamotrigine (LAMOTRIGINE) 150 Mg Tablet, PO 11/07/17 Lisinopril (LISINOPRIL) 40 Mg Tablet, 40 MG PO QDAY, TAB 11/07/17 Metformin HCl (Metformin HCl ER) 500 Mg [id number] 10/17/17 Propranolol Hcl (PROPRANOLOL HCL) 10 Mg Tablet, 10 MG PO BID 10/17/17 Bupropion Hcl (BUPROPION HCL) 100 Mg Tablet, 100 MG PO QAM 09/01/12 Aripiprazole (ABILIFY) 20 Mg Tablet, 10 MG PO QAM 09/01/12 Hydroxyzine Pamoate (Vistaril) 25 Mg Cap, 25 MG PO Q6H PRN, 0 Refills 09/28/10 Olanzapine (Zyprexa) 10 Mg Tablet, 40 MG PO QHS, 0 Refills 09/28/10 Discontinued Reported Medications Ranitidine Hcl (RANITIDINE HCL) 75 Mg Tablet, 75 MG PO DAILY 10/24/17 Discontinued Scripts Nitrofurantoin Monohyd/M-Cryst (MACROBID 100 MG CAPSULE) 100 Mg Capsule, 100 MG PO BID, #14 CAPSULE Prov:SULTANA INTERIANO SUPERVISOR DOPING 10/24/17 Past Medical/Surgical History Patient has a past medical history of seizures, irregular heartbeat, hypertension, hepatitis C, right arm fracture, diabetes, bipolar, schizophrenia, depression. Patient has a surgical history of right elbow surgery, right knee surgery, cholecystectomy. Patient has a family medical history of cancer, CAD, psychiatric problems, anesthesia reaction. Reviewed Nurses Notes: Yes Hx Smoking: Yes Smoking Status: Former Smoker Hx Substance Use Disorder: No Hx Alcohol Use: No Constitutional Vital Sign - Last 24 Hours 12/15/17 12/15/17 12/15/17 12/15/17 13:19 13:31 13:33 13:34 Temp 98.0 Pulse ??? 67 71 Resp 14 B/P (MAP) 134/87 (103) 134/87 Pulse Ox 94 94 O2 Delivery Room Air 12/15/17 12/15/17 12/15/17 12/15/17 13:38 13:49 13:53 13:54 Pulse 66 B/P (MAP) 135/106 (116) 123/74 (90) 122/78 (93) Pulse Ox 94 12/15/17 12/15/17 12/15/17 12/15/17 13:56 13:58 14:00 14:04 Pulse 64 84 68 83 B/P (MAP) 116/77 (90) 123/74 (90) 127/79 (95) 122/78 (93) 116/77 (90) Pulse Ox 94 93 O2 Delivery Room Air 12/15/17 12/15/17 12/15/17 12/15/17 14:19 14:30 14:34 14:49 Pulse 68 69 65 B/P (MAP) 122/85 (97) Pulse Ox 94 93 94 12/15/17 12/15/17 14:59 15:04 Pulse ??? B/P (MAP) 125/83 (97) Physical Exam General Appearance: The patient is alert, has no immediate need for airway protection and no current signs of toxicity. Respiratory: Chest is non tender, lungs are clear to auscultation. Cardiac: regular rate and rhythm Gastrointestinal: Abdomen is soft and non tender, no masses, bowel sounds normal. Musculoskeletal: Neck: Neck is supple and non tender. Extremities have full range of motion and are non tender. Skin: No rashes or lesions. DIFFERENTIAL DIAGNOSIS: After history and physical exam differential diagnosis was considered for syncope including but not limited to vasovagal syncope, arrhythmia, dehydration, and blood loss. Medical Decision Making Data Points Result Diagram: 12/15/17 1400 12/15/17 1400 Laboratory Hematology Test 12/15/17 14:00 12/15/17 14:08 Red Blood Count 5.22 M/uL (4.00-5.60) Mean Corpuscular Volume 88.7 fL (80.0-96.0) Mean Corpuscular Hemoglobin 31.0 pg (26.0-33.0) Mean Corpuscular Hemoglobin Concent 35.0 g/dL (32.0-36.0) Red Cell Distribution Width 13.5 % (11.5-14.5) Mean Platelet Volume 9.4 fL (7.2-11.1) Neutrophils (%) (Auto) 63.6 % (39.4-72.5) Lymphocytes (%) (Auto) 25.8 % (17.6-49.6) Monocytes (%) (Auto) 9.2 % (4.1-12.4) Eosinophils (%) (Auto) 0.5 % (0.4-6.7) Basophils (%) (Auto) 0.9 % (0.3-1.4) Nucleated RBC Relative Count (auto) 0.0 /100WBC Neutrophils # (Auto) 3.7 K/uL (2.0-7.4) Lymphocytes # (Auto) 1.5 K/uL (1.3-3.6) Monocytes # (Auto) 0.5 K/uL (0.3-1.0) Eosinophils # (Auto) 0.0 K/uL (0.0-0.5) Basophils # (Auto) 0.1 K/uL (0.0-0.1) Nucleated RBC Absolute Count (auto) 0.00 K/uL Sodium Level 138 mmol/L (137-145) Potassium Level 3.9 mmol/L (3.5-5.0) Chloride Level 102 mmol/L (98-107) Carbon Dioxide Level 23 mmol/L (22-30) Blood Urea Nitrogen 25 mg/dl (9-21) Creatinine 1.20 mg/dl (0.66-1.25) Glomerular Filtration Rate Calc > 60.0 Random Glucose 133 mg/dl (75-110) Calcium Level 9.6 mg/dl (8.4-10.2) Total Bilirubin 1.1 mg/dl (0.2-1.3) Aspartate Amino Transf (AST/SGOT) 16 U/L (0-35) Alanine Aminotransferase (ALT/SGPT) 27 U/L (0-56) Alkaline Phosphatase 79 U/L (0-126) Troponin I < 0.012 ng/ml Total Protein 7.4 g/dl (6.3-8.2) Albumin 4.2 g/dl (3.5-5.0) Urine Color Yellow Urine Clarity Slightly-cloudy Urine pH 5.0 pH (4.8-9.5) Urine Specific [place] 1.016 Urine Protein Negative mg/dL (NEGATIVE) Urine Glucose (UA) Negative mg/dL (NEGATIVE) Urine Ketones Negative mg/dL (NEGATIVE) Urine Blood Negative (NEGATIVE) Urine Nitrite Negative (NEGATIVE) Urine Bilirubin Negative (NEGATIVE) Urine Urobilinogen 4.0 mg/dL (0.2-1.9) Urine Leukocyte Esterase Moderate (NEGATIVE) Urine RBC 3 /HPF (0-2/HPF) Urine WBC 35 /HPF (0-5/HPF) Urine Squamous Epithelial Cells Few /LPF (</=FEW) Urine Bacteria Few /HPF (NONE-FEW) Urine Mucus Few /HPF (NONE-FEW) Chemistry Test 12/15/17 14:00 12/15/17 14:08 White Blood Count 5.8 k/uL (4.5-11.0) Red Blood Count 5.22 M/uL (4.00-5.60) Hemoglobin 16.2 g/dL (14.0-18.0) Hematocrit 46.3 % (42.0-52.0) Mean Corpuscular Volume 88.7 fL (80.0-96.0) Mean Corpuscular Hemoglobin 31.0 pg (26.0-33.0) Mean Corpuscular Hemoglobin Concent 35.0 g/dL (32.0-36.0) Red Cell Distribution Width 13.5 % (11.5-14.5) Platelet Count 139 K/uL (150-450) Mean Platelet Volume 9.4 fL (7.2-11.1) Neutrophils (%) (Auto) 63.6 % (39.4-72.5) Lymphocytes (%) (Auto) 25.8 % (17.6-49.6) Monocytes (%) (Auto) 9.2 % (4.1-12.4) Eosinophils (%) (Auto) 0.5 % (0.4-6.7) Basophils (%) (Auto) 0.9 % (0.3-1.4) Nucleated RBC Relative Count (auto) 0.0 /100WBC Neutrophils # (Auto) 3.7 K/uL (2.0-7.4) Lymphocytes # (Auto) 1.5 K/uL (1.3-3.6) Monocytes # (Auto) 0.5 K/uL (0.3-1.0) Eosinophils # (Auto) 0.0 K/uL (0.0-0.5) Basophils # (Auto) 0.1 K/uL (0.0-0.1) Nucleated RBC Absolute Count (auto) 0.00 K/uL Glomerular Filtration Rate Calc > 60.0 Calcium Level 9.6 mg/dl (8.4-10.2) Total Bilirubin 1.1 mg/dl (0.2-1.3) Aspartate Amino Transf (AST/SGOT) 16 U/L (0-35) Alanine Aminotransferase (ALT/SGPT) 27 U/L (0-56) Alkaline Phosphatase 79 U/L (0-126) Troponin I < 0.012 ng/ml Total Protein 7.4 g/dl (6.3-8.2) Albumin 4.2 g/dl (3.5-5.0) Urine Color Yellow Urine Clarity Slightly-cloudy Urine pH 5.0 pH (4.8-9.5) Urine Specific [place] 1.016 Urine Protein Negative mg/dL (NEGATIVE) Urine Glucose (UA) Negative mg/dL (NEGATIVE) Urine Ketones Negative mg/dL (NEGATIVE) Urine Blood Negative (NEGATIVE) Urine Nitrite Negative (NEGATIVE) Urine Bilirubin Negative (NEGATIVE) Urine Urobilinogen 4.0 mg/dL (0.2-1.9) Urine Leukocyte Esterase Moderate (NEGATIVE) Urine RBC 3 /HPF (0-2/HPF) Urine WBC 35 /HPF (0-5/HPF) Urine Squamous Epithelial Cells Few /LPF (</=FEW) Urine Bacteria Few /HPF (NONE-FEW) Urine Mucus Few /HPF (NONE-FEW) Urinalysis Test 12/15/17 14:08 Urine Color Yellow Urine Clarity Slightly-cloudy Urine pH 5.0 pH (4.8-9.5) Urine Specific [place] 1.016 Urine Protein Negative mg/dL (NEGATIVE) Urine Glucose (UA) Negative mg/dL (NEGATIVE) Urine Ketones Negative mg/dL (NEGATIVE) Urine Blood Negative (NEGATIVE) Urine Nitrite Negative (NEGATIVE) Urine Bilirubin Negative (NEGATIVE) Urine Urobilinogen 4.0 mg/dL (0.2-1.9) Urine Leukocyte Esterase Moderate (NEGATIVE) Urine RBC 3 /HPF (0-2/HPF) Urine WBC 35 /HPF (0-5/HPF) Urine Squamous Epithelial Cells Few /LPF (</=FEW) Urine Bacteria Few /HPF (NONE-FEW) Urine Mucus Few /HPF (NONE-FEW) EKG/Imaging EKG Interpretation 12 lead EKG: Rhythm: normal sinus rhythm with a ventricular rate of 65 bpm. [place]: normal QRS: normal ST segments: normal ED Course/Re-evaluation ED Course Patient was admitted to an exam room, history and physical were obtained. Differential diagnoses were considered. On examination lungs are clear, heart is regular, abdomen is soft and nontender. Patient had a blood pressure of 134/77 on arriving. We did repeat that while I was in the room and it did go up to 134/106. As a result we chose to do the CBC, CMP, urinalysis, EKG. EG showed normal sinus rhythm, troponin was negative, CBC and CMP were unremarkable. The urinalysis showed a moderate leukocyte esterase with 23 white blood cells per high-power field. A urine culture was ordered. I discussed findings with patient. We will go ahead and treat him for a urinary tract infection. I believe that is likely the underlying cause of his lightheadedness. Patient verbalized understanding and agreement with plan we will go ahead and discharge him home at this time. Decision to Disposition Date: Dec 15, 2017 Decision to Disposition Time: 14:51 Depart Departure Latest Vital Signs Vital Signs Date Time Temp Pulse Resp B/P (MAP) Pulse Ox O2 Delivery O2 Flow Rate FiO2 12/15/17 15:04 ??? 12/15/17 14:59 125/83 (97) 12/15/17 14:49 94 12/15/17 13:58 Room Air 12/15/17 13:33 98.0 14 Impression: Primary Impression: Urinary tract infection Condition: Improved Disposition: HOME OR SELF-CARE New Scripts Sulfamethoxazole/Trimet 800-160 Mg Tab (BACTRIM DS TABLET) 1 Each Tablet 1 TAB PO Q12H, #14 TAB Prov: SULTANA INTERIANO 12/15/17 Patient Instructions: Urinary Tract Infection in Men (ED) Additional Instructions: Increase fluid intake. Get plenty of rest. Limit activity by pain. Continue with normal medications. Return to the ER if condition worsens. Follow up with your primary care provider in the next week. Problem Qualifiers Primary Impression: Urinary tract infection Urinary tract infection type: acute cystitis Hematuria presence: without hematuria Qualified Codes: N30.00 - Acute cystitis without hematuria SULTANA INTERIANO Dec 15, 2017 13:35
[2017-12-15 14:10] LABS: PLATELET COUNT, AUTOMATED 139 K/uL (150-450)
[2017-12-15] MEDS ORDERED: SULF-198 PO (14:49)
[2017-12-15 14:59] VITALS: BP 125/83
--- NOTE | 2017-12-15 17:41 | EKG ---
FACILITY: [facility] PATIENT NAME: CAM ENRIQUEZ : [id number] MR: [id number] V: [id number] EXAM DATE: ORDERING PHYSICIAN: SULTANA INTERIANO TECHNOLOGIST: Test Reason : LIGHTHEADNESS Blood Pressure : / mmHG Vent. Rate : 065 BPM Atrial Rate : 065 BPM P-R Int : 120 ms QRS Dur : 106 ms QT Int : 424 ms P-R-T Axes : 087 021 046 degrees QTc Int : 440 ms Normal sinus rhythm Normal ECG When compared with ECG of 07-NOV-2017 12:13, No significant change was found Confirmed by AYO PERALTA ([id number]) on 12/15/2017 6:16:03 PM Referred By: Confirmed By:AYO PERALTA
== END 2017-12-15 15:10 | disposition home or self-care (01) ==
LOC: ER 13:46
DX: N30.00 Acute cystitis without hematuria (principal)
CPT/HCPCS: 81001; 82040; 82247; 82310; 82374; 82435; 82565; 82947; 84075; 84132; 84155; 84295; 84450; 84460; 84484; 84520; 85025; 87088; 93005; 99283

== ENCOUNTER 2018-05-15 14:30 | Emergency (ER) | payer OTHER ==
[~2018-05-15 14:30] MED LIST changes: -RANI75TA5 PO; +RANI75TA51 PO
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
[2018-05-15] MEDS ORDERED: NS(*) 0.9% 1000 ML BAG 1,000 ML IV ONE ×2 (15:00→16:20)
[2018-05-15 15:08] LABS: PLATELET COUNT, AUTOMATED 151 K/uL (150-450)
--- NOTE | 2018-05-15 15:19 | EKG ---
FACILITY: [facility] PATIENT NAME: CAM ENRIQUEZ : [id number] MR: [id number] V: [id number] EXAM DATE: ORDERING PHYSICIAN: SULTANA INTERIANO TECHNOLOGIST: Test Reason : abnormal labs Blood Pressure : / mmHG Vent. Rate : 062 BPM Atrial Rate : 062 BPM P-R Int : 128 ms QRS Dur : 106 ms QT Int : 408 ms P-R-T Axes : 066 051 058 degrees QTc Int : 414 ms Normal sinus rhythm Normal ECG When compared with ECG of 15-DEC-2017 13:46, No significant change was found Confirmed by LOY RODRIGUEZ ([id number]) on 05/16/2018 6:35:00 AM Referred By: Confirmed By:LOY RODRIGUEZ
--- NOTE | 2018-05-15 15:34 | RADIOLOGY IMAGING REPORT ---
[place] [facility] [place] NAME: Sebastien Bland : 1950 MR: [id number] V: [id number] EXAM DATE: ORDERING PHYSICIAN: SULTANA INTERIANO TECHNOLOGIST: Location: [facility] - [place] Patient: Sebastien Bland : 1950 Visit/Account:[id number] Date of Sevice: 05/15/2018 Study: Frontal and lateral views of the chest Indication: Abnormal labs Comparison study: October 17, 2017 Findings: PA and lateral views of the chest demonstrate no evidence of acute infiltrate. There is no evidence of pleural effusion. There is no evidence of pneumothorax. The mediastinal, cardiac, and diaphragmatic contours are unremarkable. The visualized bony structures are unremarkable. IMPRESSION: Unremarkable chest. Report Dictated By: Sonu Porras at 05/15/2018 3:29 PM Report E-Signed By: Sonu Porras at 05/15/2018 3:30 PM WSN:[id number]
[2018-05-15 17:30] VITALS: BP 117/87
== END 2018-05-15 17:58 | disposition home or self-care (01) ==
LOC: ER 14:55
DX: R79.89 Other specified abnormal findings of blood chemistry (principal); I10 Essential (primary) hypertension
CPT/HCPCS: 71046; 81001; 85025; 93005; 96360; 96361; 99284; J7030; 82040; 82247; 82310; 82374; 82435; 82565; 82947; 84075; 84132; 84155; 84295; 84450; 84460; 84520